=== PATIENT | female | born 1985 ===

== ENCOUNTER 2018-03-14 18:58 | Inpatient (IN) | payer OTHER ==
[2018-03-14 19:27] VITALS: BMI 30.7
[2018-03-14] MEDS ORDERED: Oxytocin 30 UNIT 30 UNITS/500 ML BAG IV ONE (20:21)
[2018-03-14] MEDS: Lactated Ringer's 1,000 ML IV SCH (20:45)
--- NOTE | 2018-03-14 21:50 | OBHP ---
Datetime: 03/14/2018 20:22 IP Adm Impression: Term, intrauterine IP Admit Plan: Admit to unit; Initiate labor protocol Admit Comment, IP Provider: HPI: Yeny is a 32 year old at 38.5 weeks who presents for contract ions. They began about 4 hours ago and have remained 5-7 minutes apart, lasting about 1 minute. She a lso noticed a brown colored discharge. Good movement. No LOF. 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 Suspect she will be in active labor soon, admitting for expectant management. - GBS neg - Contemplating nitrous versus epidural for pain management - CBC and type and screen sent Paula Grullon MD OB Fellow Attending Note: Patient was seen and discussed with fellow Pt denies headache, blurry vision or dizziness. BPs elevated. I would include preeclamtic lab evaluation. FHR - Baseline A Provider: 150 Contraction Comments Provider: Q5 min Comments, ACOG Physical Exam: General: alert, oriented, no acute distress HEENT: mucous membranes moist, PERRL Respiratory: normal respiratory effort CV: Regular rate Abdomen: gravid, nontender Gestation - Est Wks by US: 38.5 EGA AdmitDate IP: 38.5 Vital Signs Provider: Reviewed; Within Normal Limits IP Chief Complaint: Uterine contractions NICHD Variability Prov Fetus A: Moderate 6-25bpm NICHD Accel Fetus A IP Provider: [id number] FHR Category Provider Fetus A: Category I NICHD Decel Fetus A IP Provider: None Dilatation, Provider: 4 Effacement, Provider: 10 Station, Provider: -3
[2018-03-14 22:07] LABS: ALB/GLOB RATIO 1.1 (1.0-2.1); ALBUMIN 3.5 g/dL (3.5-5.0); ALT/SGPT 24 U/L (9-52); AST/SGOT 41 U/L (14-36); BLOOD UREA NITROGEN 8 mg/dl (7-17); CALCIUM 9.2 mg/dL (8.4-10.2); GFR NON-AFRICAN AMERICAN > 60
[2018-03-14 23:16] VITALS: RESP 20
[2018-03-15] MEDS ORDERED: Fentanyl/Bupivacaine HCl 250 ML EPI ONE (00:29)
[2018-03-15] MEDS: Lactated Ringer's 1,000 ML IV SCH ×2 (01:00→06:00)
--- NOTE | 2018-03-15 01:27 | OBPN ---
Datetime: 03/15/2018 01:23 IP Progress Impression: Normal progression of labor IP Informed Consent Obtain: Vaginal Delivery IP Procedures: Sterile Vag Exam IP Progress Plan: Continue present management; Anticipate Vaginal Delivery Membranes, Provider: Intact FHR - Baseline A Provider: 130s Gestation - Est Wks by US: 38.6 Presentation-Admit: Vertex IP Progress Note Comment: IUP at 38.6wks in labor S/p Epidural Comfortable Plan Continue with monitoring of the progress of labor. Vital Signs Provider: Reviewed NICHD Accel Fetus A IP Provider: [id number] FHR Category Provider Fetus A: Category I NICHD Variability Prov Fetus A: Moderate 6-25bpm Dilatation, Provider: 6-7 Effacement, Provider: 90 Station, Provider: -2 NICHD Decel Fetus A IP Provider: None Datetime: 03/14/2018 20:22 Contraction Comments Provider: Q5 min
--- NOTE | 2018-03-15 09:02 | OBDS ---
DELIVERY PERSONNEL Delivery Doctor: David Munoz MD Inspector Subassembly: Whitney Salinas RN Anesthesiologist: Alexandra Beard MD MATERNAL INFORMATION Delivery Anesthesia: Epidural Medications in Delivery: pitocin Estimated Blood Loss (ml): 250 Placenta Cultured: No Maternal Complications: None Provider Comments: Uncomplicated spontaneous delivery of a viable male with BW of 3205g and A PGAR scores of 9 and 9. There was a loose True knot in the midportion of the cord. Placenta delivered complete spontaneously. EBL - 250mls. Second degree laceration repaired with vicryl rapid with good cosmesis under epidural anesthesia. Patient tolerated the procedure well. LABOR SUMMARY EDC: 03/23/2018 00:00 No. Babies in Womb: 1 Attempted: No Labor Anesthesia: Epidural LABOR INFORMATION Reason for Induction: Not Applicable Onset of Labor: 03/14/2018 16:00 Complete Dilatation: 03/15/2018 08:00 Oxytocin: N/A Group B Beta Strep: Negative Antibiotics # of Doses: 0 Antibiotics Time of Last Dose: 0 Steroids Given: None Reason Steroids Not Administered: Not Applicable MEMBRANES Membranes Rupture Method: Artificial Rupture of Membranes: 03/15/2018 08:01 Length of Rupture (hrs): 0.32 Amniotic Fluid Color: Clear Amniotic Fluid Amount: Moderate Amniotic Fluid Odor: Normal STAGES OF LABOR Stage 1 hrs: 16 Stage 1 min: 0 Stage 2 hrs: 0 Stage 2 min: 20 Stage 3 hrs: 0 Stage 3 min: 6 Total Time in Labor hrs: 16 Total Time in Labor min: 26 VAGINAL DELIVERY Episiotomy: None Laceration Extension: Second Degree Laceration Type: Perineal Laceration Repair: Yes Laceration Repair Note: Repaired with good cosmesis under epidural anesthesia Initial Vag Sponge Count: 0 Final Vag Sponge Count: 0 Initial Vag Sharps Count: 2 Final Vag Sharps Count: 2 Sponge Count Correct: Yes Sharps Count Correct: Yes BABY A INFORMATION Delivery Date/Time: 03/15/2018 08:20 Method of Delivery: Vaginal Born in Route : No : N/A Forceps: N/A Vacuum Extraction: N/A Shoulder Dystocia : No SHOULDER DYSTOCIA BABY A Delivery Date/Time: 03/15/2018 08:20 PRESENTATION/POSITION BABY A Presentation: Cephalic Cephalic Presentation: Vertex Breech Presentation: N/A PLACENTA INFORMATION BABY A Placenta Delivery Time : 03/15/2018 08:26 Placenta Method of Delivery: Expressed Placenta Status: Delivered SCORES BABY A Heart Rate 1 min: >100 bpm Resp Effort 1 min: Good Cry Reflex Irritability 1 min: Cough or Sneeze or Pulls Away Muscle Tone 1 min: Active Motion Color 1 min: Body [place], Extremities Blue SCORE 1 MIN: 9 Heart Rate 5 min: >100 bpm Resp Effort 5 min: Good Cry Reflex Irritability 5 min: Cough or Sneeze or Pulls Away Muscle Tone 5 min: Active Motion Color 5 min: Body [place], Extremities Blue SCORE 5 MIN: 9 INFANT INFORMATION BABY A Gestational Age at Delivery: 38.6 Gestational Status: Term Outcome : Liveborn Infant Condition : Stable Infant Sex: Male IDENTIFICATION/MEDS BABY A ID Band Number: [id number] ID Band Location: Left Leg; Left Arm WEIGHT/LENGTH BABY A Infant Birthweight (gms): 3205 Weight (lb): 7 Infant Weight (oz): 1 CORD INFORMATION BABY A No. Cord Vessels: 3 Nuchal Cord : N/A True Knot: 1 Cord Blood Taken: No Infant Suction: None
[2018-03-15] MEDS ORDERED: Benzocaine/Menthol SPRAY TOP PRN (09:09)
[2018-03-15] MEDS ORDERED: Oxycodone/Acetaminophen 5/325 mg Tab PO PRN (09:09)
[2018-03-16 06:59] LABS: BASO % 0.4 % (0.0-2.0); EOS # 0.1 K/uL (0.0-0.7); EOS % 1.1 % (0.0-4.0); HEMOGLOBIN 10.9 g/dL (12.0-16.0); LYMPH # 2.1 K/uL (1.0-4.3); LYMPH % 15.8 % (20.0-40.0); MEAN CELL VOLUME 84.6 fl (81.0-99.0); MEAN CORPUSCULAR HEMOGLOBIN 28.3 pg (27.0-31.0); MEAN CORPUSCULAR HGB CONC 33.5 g/dL (33.0-37.0); MEAN PLATELET VOLUME 9.5 fl (7.2-11.7); MONO # 0.6 K/uL (0.0-0.8); MONO % 4.2 % (0.0-10.0); NEUT # 10.5 K/uL (1.8-7.0); NEUT % 78.5 % (50.0-75.0); RBC 3.86 Mil/uL (3.80-5.20); RED CELL DISTRIBUTION WIDTH 17.1 % (11.5-14.5); WHITE BLOOD COUNT 13.3 K/uL (4.8-10.8)
--- NOTE | 2018-03-16 10:58 | OBPPN ---
Datetime: 03/16/2018 10:52 PP Pain Prov: Within normal limits PP Nausea Prov: Denies PP Flatus Prov: Yes PP Breasts Prov: Normal PP Heart Prov: Normal PP Lungs Prov: Normal PP Abdomen/Uterus Prov: Normal PP Lochia Prov: Normal PP Vulva/Perineum Prov: Normal PP CVA Tenderness Prov: Normal PP Extremities Prov: Normal PP Impression Prov: Normal progression PP Plan Prov: Continue present management PP Progress Note Prov: Patient denies CP, no SOB, no n/v, tolerating Po diet, ambulating/voiding wel l, mild lochia A/ PPD #1 1. Continue orders 2. /encourage ambulation 3. Percocoet/Motrin prn pain IP PP Procedures: None Vital Signs Provider PP: Reviewed; Within Normal Limits
[2018-03-17 18:04] VITALS: BP 154/88; PULSE 79; TEMP 98.7; O2SAT 99
--- NOTE | 2018-03-18 09:37 | OBDCSUM ---
Datetime: 03/17/2018 11:30 Discharge Diagnosis, Provider: Term Delivered Contraception after Delivery: Undecided
--- NOTE | 2018-03-18 09:37 | OBPPN ---
Datetime: 03/17/2018 09:33 PP Pain Prov: Within normal limits PP Nausea Prov: Denies PP Flatus Prov: Yes PP BM Prov: Yes PP Breasts Prov: Normal PP Heart Prov: Normal PP Lungs Prov: Normal PP Abdomen/Uterus Prov: Normal PP Lochia Prov: Normal PP Vulva/Perineum Prov: Normal PP CVA Tenderness Prov: Normal PP Extremities Prov: Normal PP C/S Incision Prov: Not Applicable PP Progress Prov: Normal PP Comments Phys Exam Prov: Uterus firm, below umbilicus Abdomen soft, nontender, nondistended No deep calf tenderness bilaterally PP Impression Prov: Normal progression PP Plan Prov: Discharge PP Progress Note Prov: day #2 status post , patient recovering well Discharge home today Follow-up in office in 6 weeks for checkup Patient given instructions and precautions IP PP Procedures: None Vital Signs Provider PP: Reviewed; Within Normal Limits
== END 2018-03-17 14:00 | disposition home or self-care (01) | DRG 775 ==
LOC: H.EROB2 18:58 → H.L&D 20:19 → H.OB/GYN 03-15 15:00
PROVIDERS: ADMIT Obstetrics & Gynecology; ATTEND Obstetrics & Gynecology
PROC: 4A1HXCZ Monitoring of Products of Conception, Cardiac Rate, External Approach (ICD-10-PCS; 2018-03-14)
PROC: 10E0XZZ Delivery of Products of Conception, External Approach (ICD-10-PCS; principal; 2018-03-15)
PROC: 0KQM0ZZ Repair Perineum Muscle, Open Approach (ICD-10-PCS; 2018-03-15)
PROC: 10907ZC Drainage of Amniotic Fluid, Therapeutic from Products of Conception, Via Natural or Artificial Opening (ICD-10-PCS; 2018-03-15)
DX: O69.2XX0 Labor and delivery complicated by other cord entanglement, with compression, not applicable or unspecified (principal); O70.1 Second degree perineal laceration during delivery; Z37.0 Single live birth; Z3A.38 38 weeks gestation of pregnancy